=== PATIENT | female | born 1970 | race Caucasian/White ===

== ENCOUNTER 2019-01-30 10:00 | Emergency (ER) | payer MEDICAID ==
[~2019-01-30] VITALS: Ht 152.4 cm; Wt 82.0 kg
[2019-01-30] MEDS ORDERED: FAMOTIDINE 20MG/2ML VIAL IV STA (11:03)
[2019-01-30] MEDS ORDERED: PANTOPRAZOLE SODIUM 40 MG/VIAL IV STA (11:03)
[2019-01-30] MEDS ORDERED: MORPHINE SULFATE 4 MG/ML CPJ (NOT FOR IM USE) IV STA (11:03)
[2019-01-30] MEDS ORDERED: SODIUM CHLORIDE 0.9% 1,000 ML IV ONE (11:03)
[2019-01-30] MEDS ORDERED: ONDANSETRON HCL 4MG/2ML INJ IV STA (11:03)
[2019-01-30 12:27] LABS: CLARITY URINE CLEAR (CLEAR); COLOR URINE YELLOW (YELLOW); KETONES URINE TRACE (NEGATIVE); LEUKOCYTE ESTERASE URINE NEGATIVE (NEGATIVE); NITRITE URINE NEGATIVE (NEGATIVE); OCCULT BLOOD URINE NEGATIVE (NEGATIVE); PROTEIN URINE NEGATIVE (NEGATIVE); SPECIFIC GRAVITY URINE 1.029 (1.005-1.030)
[2019-01-30 13:04] LABS: HEMATOCRIT. 39.8 % (36.0-48.0); HEMOGLOBIN. 13.8 g/dL (12.0-16.0); MEAN CORPUSCULAR HEMOGLOBIN 31.1 pg (28.0-32.0); MEAN CORPUSCULAR VOLUME 89.7 fL (81.0-99.0); MEAN PLATELET VOLUME 8.5 fl (7.4-10.4); PLATELET 230 x1000/uL (130-400); RED BLOOD CELL COUNT 4.44 mill/uL (4.2-5.4); RED CELL DISTRIBUTION WIDTH 13.2 % (11.6-14.6)
[2019-01-30 13:09] LABS: CHLORIDE 110 mEq/L (98-107)
[2019-01-30 13:20] LABS: HCG SCREEN NEGATIVE
[2019-01-30 13:39] LABS: PLATELET ESTIMATE NORMAL
[2019-01-30 15:55] VITALS: BP 118/75
== END 2019-01-30 15:59 | disposition home or self-care (01) ==
LOC: ER 10:00
DX: R10.13 Epigastric pain (principal); R11.2 Nausea with vomiting, unspecified; R74.8 Abnormal levels of other serum enzymes; Z87.11 Personal history of peptic ulcer disease
CPT/HCPCS: 36415; 74176; 76705; 80053; 81003; 83690; 84703; 85025; 96361; 96374; 96375; 99284; C9113; J2270; J2405; J3490; J7030